=== PATIENT | female | born 1990 ===

== ENCOUNTER 2017-02-11 02:11 | Inpatient (IN) | payer MEDICAID ==
[2017-02-11] MEDS ORDERED: POLYCILLIN/NS 2 GM/100 ML 2 GM/100 ML BAG IV ONE (03:27)
[2017-02-11] MEDS ORDERED: ePHEDrine SULFATE IV PRN ×3 (03:27→08:38)
[2017-02-11] MEDS ORDERED: XYLOCAINE 2% INFILTRATI ONE ×2 (03:27→04:31)
[2017-02-11] MEDS ORDERED: BRETHINE IVP PRN ×2 (03:27→04:31)
[2017-02-11] MEDS ORDERED: BRETHINE SUB-Q PRN ×2 (03:27→04:31)
[2017-02-11] MEDS ORDERED: MINERAL OIL PO PRN ×2 (03:27→04:31)
[2017-02-11] MEDS ORDERED: PITOCin/NS 20 UNIT/1000ML DRIP 20 UNITS/1,000 ML BAG IV SCH ×2 (04:00→05:00)
[2017-02-11] MEDS ORDERED: LACTATED RINGERS 1,000 ML IV SCH (04:00)
[2017-02-11 04:16] LABS: Hematocrit 32.6 % (30.3-42.9); Hemoglobin 10.7 gm/dl (10.1-14.3); Mean Corpuscular HGB Conc 33 % (30-34); Mean Corpuscular Hemoglobin 30 pg (28-32); Mean Corpuscular Volume 91 fl (79-97); Platelet Count 336 K/mm3 (140-440); Red Cell Distribution Width 14.4 % (13.2-15.2); White Blood Count 11.2 K/mm3 (4.5-11.0)
--- NOTE | 2017-02-11 04:23 | History and Physical Report ---
History of Present Illness Date of examination: 02/11/17 Date of admission: 02/11/17 03:29 Chief complaint: Painful contractions History of present illness: 26-year-old at 39+ weeks presents with painful contractions, she is a [facility] patient. She is GBS positive, care has been unremarkable. Past History Past Medical History: no pertinent history Past Surgical History: no surgical history [employer] History: denies: chlamydia, gonorrhea, hepatitis B, hepatitis C, herpes, HIV , syphilis, trichomonas Social history: single. denies: smoking, alcohol abuse, prescription drug abuse , IV drug use, full code - Obstetrical History Expected Date of Delivery: 02/15/17 Actual Gestation: 39 Week(s) 3 Day(s) : 4 Para: 1 Number of Living Children: 1 Medications and Allergies Allergies Allergy/AdvReac Type Severity Reaction Status Date / Time No Known Allergies Allergy Unverified 12/06/15 15:26 Active Meds: Active Medications Fentanyl (Sublimaze) 100 mcg IV Q2H PRN PRN Reason: Labor Pain Ampicillin Sodium (Polycillin/Ns 2 Gm/100 Ml) 2 gm in 100 mls @ 100 mls/hr IV ONCE ONE PRN Reason: Protocol Stop: 02/11/17 04:26 Lactated Ringer's (Lactated Ringers) 1,000 mls @ 125 mls/hr IV DIRECT RISA Oxytocin/Sodium Chloride (Pitocin/Ns 20 Unit/1000ml Drip) 20 units in 1,000 mls @ 125 mls/hr IV DIRECT RISA Ampicillin Sodium (Polycillin/Ns 1 Gm/50 Ml) 1 gm in 50 mls @ 100 mls/hr IV Q4H RISA PRN Reason: Protocol Mineral Oil (Mineral Oil) 30 ml PO QHS PRN PRN Reason: Constipation Review of Systems Constitutional: no fever, no chills, no sweats, no lethargy, no chronic headaches Cardiovascular: no chest pain, no orthopnea, no palpitations, no edema, no syncope, no lightheadedness, no shortness of breath Respiratory: no cough with sputum, no shortness of breath, no dyspnea on exertion Gastrointestinal: abdominal pain (painful contractions) - Vital Signs Vital signs: Vital Signs Pulse BP 76 118/68 02/11/17 02:23 02/11/17 02:23 Temp Pulse Resp BP Pulse Ox 97.9 F 84 20 118/68 98 02/11/17 02:25 02/11/17 04:13 02/11/17 02:25 02/11/17 02:23 02/11/17 04:13 - Physical Exam Abdomen: Positive: normal appearance, soft. Negative: distention, tenderness, guarding, rigidity Genitourinary (Female): Positive: normal external genitalia Uterus: Positive: enlarged (EFW ~ 3700) Adnexa: both: normal Extremities: Positive: normal - Obstetrical FHR: category 1 Cervical Dilatation: 3 (per RN) Results Result Diagrams: 02/11/17 03:41 Abnormal lab results 02/11/17 Range/Units 03:41 WBC 11.2 H (4.5-11.0) K/mm3 RBC 3.60 L (3.65-5.03) M/mm3 All other labs normal. Assessment and Plan A: 26 y/o at 39+ wks with painful contractions -Cat 1 tracing P: -Admit -Routine labs -Epidural prn -Routine care -Anticipate - Patient Problems (1) 39 weeks gestation of Current Visit: Yes Status: Acute (2) Active labor at term Current Visit: Yes Status: Acute
[2017-02-11] MEDS: SUBLIMAZE IV PRN ×3 (04:30→20:59)
[2017-02-11] MEDS ORDERED: ZOFRAN IV PRN (04:31)
[2017-02-11] MEDS: PITOCin/NS 30 UNIT/500ML 30 UNITS/500 ML BAG IV SCH ×2 (05:10→23:03)
[2017-02-11] MEDS: LACTATED RINGERS 1,000 ML IV SCH ×3 (05:13→22:18)
[2017-02-11] MEDS ORDERED: ePHEDrine SULFATE ONE (07:53)
[2017-02-11] MEDS ORDERED: NARCAN 2 MG/2 ML IV PRN (08:38)
--- NOTE | 2017-02-11 08:38 | Anesthesia Consultation ---
Anesthesia Consult and Med Hx Date of service: 02/11/17 - Airway Anesthetic Teeth Evaluation: Good ROM Head & Neck: Adequate Mental/Hyoid Distance: Adequate Intubation Access Assessment: Probably Good - Pre-Operative Health Status ASA Pre-Surgery Classification: ASA2, Emergency Proposed Anesthetic Plan: Epidural, Spinal - Pulmonary Hx Asthma: No COPD: No Hx Pneumonia: No - Cardiovascular System Hx Hypertension: No - Central Nervous System Hx Seizures: No Hx Psychiatric Problems: No - Endocrine Hx Renal Disease: No Hx End Stage Renal Disease: No Hx Hypothyroidism: No Hx Hyperthyroidism: No - Hematic Hx Anemia: Yes Hx Sickle Cell Disease: No - Other Systems Hx Alcohol Use: No
[2017-02-11] MEDS: POLYCILLIN/NS 1 GM/50 ML 1 GM/50 ML BAG IV SCH ×2 (08:46→16:19)
[2017-02-11] MEDS: fentaNYL-BUPIV 2 MCG/ML-0.125% 200 MCG/100 ML BAG EPIDURAL SCH ×2 (08:51→16:58)
--- NOTE | 2017-02-11 13:52 | Progress Note ---
Assessment and Plan A: 26 y/o at 39+ wks in active labor -Cat 1 tracing P: -No cervical change despite Pitocin -Will reexamine cervix at 2 -Disposition after exam - Patient Problems (1) 39 weeks gestation of Current Visit: Yes Status: Acute (2) Active labor at term Current Visit: Yes Status: Acute Subjective - Subjective Date of service: 02/11/17 Interval history: 26-year-old at 39+ weeks presents in active labor, she is a [facility] patient. She is GBS positive, care has been unremarkable. Patient reports: new complaints, contractions, no loss of fluid, no vaginal bleeding Objective - Vital Signs Vital Signs: Vital Signs - 12hr 02/11/17 02/11/17 02/11/17 02:23 02:25 04:13 Temperature 97.9 F Pulse Rate 76 84 Pulse Rate [ Left From Monitor] Respiratory 20 Rate Blood Pressure 118/68 Blood Pressure [Right Arm] O2 Sat by Pulse 98 Oximetry 02/11/17 02/11/17 02/11/17 04:17 04:18 04:23 Temperature Pulse Rate 90 90 88 Pulse Rate [ Left From Monitor] Respiratory Rate Blood Pressure 119/94 Blood Pressure [Right Arm] O2 Sat by Pulse 96 97 Oximetry 02/11/17 02/11/17 02/11/17 04:28 04:30 04:33 Temperature Pulse Rate 92 H 91 H Pulse Rate [ Left From Monitor] Respiratory 19 Rate Blood Pressure Blood Pressure [Right Arm] O2 Sat by Pulse 97 98 Oximetry 02/11/17 02/11/17 02/11/17 04:38 04:43 04:48 Temperature Pulse Rate 88 89 89 Pulse Rate [ Left From Monitor] Respiratory Rate Blood Pressure Blood Pressure [Right Arm] O2 Sat by Pulse 98 97 97 Oximetry 02/11/17 02/11/17 02/11/17 04:53 04:54 04:55 Temperature 97.9 F Pulse Rate 84 86 Pulse Rate [ 85 Left From Monitor] Respiratory 18 Rate Blood Pressure 118/70 Blood Pressure 118/70 [Right Arm] O2 Sat by Pulse 97 Oximetry 02/11/17 02/11/17 02/11/17 04:58 05:00 05:03 Temperature Pulse Rate 90 90 Pulse Rate [ Left From Monitor] Respiratory 19 Rate Blood Pressure Blood Pressure [Right Arm] O2 Sat by Pulse 96 97 Oximetry 02/11/17 02/11/17 02/11/17 05:08 05:13 05:18 Temperature Pulse Rate 90 85 90 Pulse Rate [ Left From Monitor] Respiratory Rate Blood Pressure Blood Pressure [Right Arm] O2 Sat by Pulse 97 97 96 Oximetry 02/11/17 02/11/17 02/11/17 05:23 05:25 05:28 Temperature Pulse Rate 82 82 97 H Pulse Rate [ Left From Monitor] Respiratory Rate Blood Pressure 121/76 Blood Pressure [Right Arm] O2 Sat by Pulse 97 95 Oximetry 02/11/17 02/11/17 02/11/17 05:33 05:38 05:43 Temperature Pulse Rate 86 84 91 H Pulse Rate [ Left From Monitor] Respiratory Rate Blood Pressure Blood Pressure [Right Arm] O2 Sat by Pulse 97 96 96 Oximetry 02/11/17 02/11/17 02/11/17 05:46 05:48 05:53 Temperature Pulse Rate 91 H 88 91 H Pulse Rate [ Left From Monitor] Respiratory Rate Blood Pressure Blood Pressure [Right Arm] O2 Sat by Pulse 92 96 93 Oximetry 02/11/17 02/11/17 02/11/17 05:55 05:58 06:00 Temperature Pulse Rate 88 76 90 Pulse Rate [ Left From Monitor] Respiratory Rate Blood Pressure 122/64 Blood Pressure [Right Arm] O2 Sat by Pulse 96 90 Oximetry 02/11/17 02/11/17 02/11/17 06:03 06:07 06:08 Temperature Pulse Rate 88 89 95 H Pulse Rate [ Left From Monitor] Respiratory Rate Blood Pressure Blood Pressure [Right Arm] O2 Sat by Pulse 99 94 98 Oximetry 02/11/17 02/11/17 02/11/17 06:13 06:14 06:18 Temperature Pulse Rate 89 84 86 Pulse Rate [ Left From Monitor] Respiratory Rate Blood Pressure Blood Pressure [Right Arm] O2 Sat by Pulse 95 93 95 Oximetry 02/11/17 02/11/17 02/11/17 06:19 06:23 06:25 Temperature Pulse Rate 83 83 103 H Pulse Rate [ Left From Monitor] Respiratory Rate Blood Pressure 108/63 Blood Pressure [Right Arm] O2 Sat by Pulse 94 95 Oximetry 02/11/17 02/11/17 02/11/17 06:26 06:28 06:32 Temperature Pulse Rate 85 85 86 Pulse Rate [ Left From Monitor] Respiratory Rate Blood Pressure Blood Pressure [Right Arm] O2 Sat by Pulse 90 95 93 Oximetry 02/11/17 02/11/17 02/11/17 06:33 06:38 06:40 Temperature Pulse Rate 87 100 H Pulse Rate [ Left From Monitor] Respiratory 18 Rate Blood Pressure Blood Pressure [Right Arm] O2 Sat by Pulse 94 98 Oximetry 02/11/17 02/11/17 02/11/17 06:43 06:45 06:48 Temperature Pulse Rate 89 94 H 86 Pulse Rate [ Left From Monitor] Respiratory Rate Blood Pressure Blood Pressure [Right Arm] O2 Sat by Pulse 96 93 94 Oximetry 02/11/17 02/11/17 02/11/17 06:53 06:55 06:58 Temperature Pulse Rate 86 85 84 Pulse Rate [ Left From Monitor] Respiratory Rate Blood Pressure 110/56 Blood Pressure [Right Arm] O2 Sat by Pulse 94 94 Oximetry 02/11/17 02/11/17 02/11/17 07:03 07:05 07:08 Temperature Pulse Rate 103 H 90 87 Pulse Rate [ Left From Monitor] Respiratory Rate Blood Pressure Blood Pressure [Right Arm] O2 Sat by Pulse 96 94 94 Oximetry 02/11/17 02/11/17 02/11/17 07:11 07:13 07:18 Temperature Pulse Rate 89 100 H 87 Pulse Rate [ Left From Monitor] Respiratory Rate Blood Pressure Blood Pressure [Right Arm] O2 Sat by Pulse 93 96 95 Oximetry 02/11/17 02/11/17 02/11/17 07:20 07:23 07:25 Temperature Pulse Rate 88 98 H 87 Pulse Rate [ Left From Monitor] Respiratory Rate Blood Pressure 118/70 Blood Pressure [Right Arm] O2 Sat by Pulse 93 96 Oximetry 02/11/17 02/11/17 02/11/17 07:28 07:33 07:38 Temperature Pulse Rate 95 H 90 92 H Pulse Rate [ Left From Monitor] Respiratory Rate Blood Pressure Blood Pressure [Right Arm] O2 Sat by Pulse 97 95 97 Oximetry 02/11/17 02/11/17 02/11/17 07:42 07:43 07:48 Temperature Pulse Rate 94 H 90 88 Pulse Rate [ Left From Monitor] Respiratory Rate Blood Pressure Blood Pressure [Right Arm] O2 Sat by Pulse 94 95 95 Oximetry 02/11/17 02/11/17 02/11/17 07:53 07:54 07:55 Temperature Pulse Rate 91 H 91 H 93 H Pulse Rate [ Left From Monitor] Respiratory Rate Blood Pressure 117/70 Blood Pressure [Right Arm] O2 Sat by Pulse 95 94 Oximetry 02/11/17 02/11/17 02/11/17 07:58 08:06 08:11 Temperature Pulse Rate 81 91 H 93 H Pulse Rate [ Left From Monitor] Respiratory Rate Blood Pressure Blood Pressure [Right Arm] O2 Sat by Pulse 96 99 98 Oximetry 02/11/17 02/11/17 02/11/17 08:15 08:16 08:17 Temperature Pulse Rate 99 H 98 H 96 H Pulse Rate [ Left From Monitor] Respiratory Rate Blood Pressure 126/79 124/78 Blood Pressure [Right Arm] O2 Sat by Pulse 98 Oximetry 02/11/17 02/11/17 02/11/17 08:19 08:21 08:23 Temperature Pulse Rate 101 H 100 H 95 H Pulse Rate [ Left From Monitor] Respiratory Rate Blood Pressure 120/76 119/75 122/80 Blood Pressure [Right Arm] O2 Sat by Pulse 98 Oximetry 02/11/17 02/11/17 02/11/17 08:25 08:26 08:27 Temperature Pulse Rate 95 H 89 89 Pulse Rate [ Left From Monitor] Respiratory Rate Blood Pressure 114/63 111/60 Blood Pressure [Right Arm] O2 Sat by Pulse 98 Oximetry 02/11/17 02/11/17 02/11/17 08:29 08:31 08:33 Temperature Pulse Rate 92 H 90 86 Pulse Rate [ Left From Monitor] Respiratory Rate Blood Pressure 112/63 114/61 114/62 Blood Pressure [Right Arm] O2 Sat by Pulse 97 Oximetry 02/11/17 02/11/17 02/11/17 08:35 08:36 08:37 Temperature Pulse Rate 90 87 93 H Pulse Rate [ Left From Monitor] Respiratory Rate Blood Pressure 114/63 118/67 Blood Pressure [Right Arm] O2 Sat by Pulse 97 Oximetry 02/11/17 02/11/17 02/11/17 08:39 08:41 08:43 Temperature Pulse Rate 87 85 90 Pulse Rate [ Left From Monitor] Respiratory Rate Blood Pressure 113/63 114/66 105/58 Blood Pressure [Right Arm] O2 Sat by Pulse 97 Oximetry 02/11/17 02/11/17 02/11/17 08:46 08:49 08:51 Temperature Pulse Rate 90 86 92 H Pulse Rate [ Left From Monitor] Respiratory Rate Blood Pressure 114/58 Blood Pressure [Right Arm] O2 Sat by Pulse 97 95 Oximetry 02/11/17 02/11/17 02/11/17 08:55 08:56 09:01 Temperature Pulse Rate 84 89 82 Pulse Rate [ Left From Monitor] Respiratory Rate Blood Pressure 109/55 Blood Pressure [Right Arm] O2 Sat by Pulse 95 95 Oximetry 02/11/17 02/11/17 02/11/17 09:06 09:11 09:16 Temperature Pulse Rate 83 77 77 Pulse Rate [ Left From Monitor] Respiratory Rate Blood Pressure 107/57 Blood Pressure [Right Arm] O2 Sat by Pulse 100 100 99 Oximetry 02/11/17 02/11/17 02/11/17 09:21 09:26 09:31 Temperature Pulse Rate 78 77 80 Pulse Rate [ Left From Monitor] Respiratory Rate Blood Pressure 98/52 Blood Pressure [Right Arm] O2 Sat by Pulse 99 99 99 Oximetry 02/11/17 02/11/17 02/11/17 09:36 09:41 09:46 Temperature Pulse Rate 84 80 82 Pulse Rate [ Left From Monitor] Respiratory Rate Blood Pressure Blood Pressure [Right Arm] O2 Sat by Pulse 99 100 100 Oximetry 02/11/17 02/11/17 02/11/17 09:51 09:55 09:56 Temperature Pulse Rate 75 77 79 Pulse Rate [ Left From Monitor] Respiratory Rate Blood Pressure 107/59 Blood Pressure [Right Arm] O2 Sat by Pulse 100 100 Oximetry 02/11/17 02/11/17 02/11/17 10:01 10:06 10:11 Temperature Pulse Rate 85 83 79 Pulse Rate [ Left From Monitor] Respiratory Rate Blood Pressure 111/57 Blood Pressure [Right Arm] O2 Sat by Pulse 100 100 100 Oximetry 02/11/17 02/11/17 02/11/17 10:16 10:21 10:26 Temperature Pulse Rate 80 82 76 Pulse Rate [ Left From Monitor] Respiratory Rate Blood Pressure 110/58 Blood Pressure [Right Arm] O2 Sat by Pulse 99 100 100 Oximetry 02/11/17 02/11/17 02/11/17 10:31 10:36 10:41 Temperature Pulse Rate 84 77 80 Pulse Rate [ Left From Monitor] Respiratory Rate Blood Pressure 112/61 Blood Pressure [Right Arm] O2 Sat by Pulse 100 100 100 Oximetry 02/11/17 02/11/17 02/11/17 10:48 10:53 10:57 Temperature Pulse Rate 83 81 79 Pulse Rate [ Left From Monitor] Respiratory Rate Blood Pressure 116/65 Blood Pressure [Right Arm] O2 Sat by Pulse 100 99 Oximetry 02/11/17 02/11/17 02/11/17 10:58 11:03 11:08 Temperature Pulse Rate 80 82 82 Pulse Rate [ Left From Monitor] Respiratory Rate Blood Pressure Blood Pressure [Right Arm] O2 Sat by Pulse 100 100 99 Oximetry 02/11/17 02/11/17 02/11/17 11:12 11:13 11:15 Temperature 98.0 F Pulse Rate 76 81 Pulse Rate [ 81 Left From Monitor] Respiratory 16 Rate Blood Pressure 113/61 Blood Pressure 113/61 [Right Arm] O2 Sat by Pulse 99 Oximetry 02/11/17 02/11/17 02/11/17 11:18 11:23 11:25 Temperature Pulse Rate 78 81 83 Pulse Rate [ Left From Monitor] Respiratory Rate Blood Pressure 115/61 Blood Pressure [Right Arm] O2 Sat by Pulse 100 99 Oximetry 02/11/17 02/11/17 02/11/17 11:28 11:33 11:38 Temperature Pulse Rate 91 H 87 77 Pulse Rate [ Left From Monitor] Respiratory Rate Blood Pressure Blood Pressure [Right Arm] O2 Sat by Pulse 100 98 100 Oximetry 02/11/17 02/11/17 02/11/17 11:40 11:43 11:48 Temperature Pulse Rate 88 82 79 Pulse Rate [ Left From Monitor] Respiratory Rate Blood Pressure 115/62 Blood Pressure [Right Arm] O2 Sat by Pulse 100 100 Oximetry 02/11/17 02/11/17 02/11/17 11:53 11:56 11:58 Temperature Pulse Rate 80 77 79 Pulse Rate [ Left From Monitor] Respiratory Rate Blood Pressure 111/63 Blood Pressure [Right Arm] O2 Sat by Pulse 99 100 Oximetry 02/11/17 02/11/17 02/11/17 12:03 12:08 12:11 Temperature Pulse Rate 77 80 75 Pulse Rate [ Left From Monitor] Respiratory Rate Blood Pressure 111/66 Blood Pressure [Right Arm] O2 Sat by Pulse 100 100 Oximetry 02/11/17 02/11/17 02/11/17 12:13 12:18 12:23 Temperature Pulse Rate 87 82 83 Pulse Rate [ Left From Monitor] Respiratory Rate Blood Pressure Blood Pressure [Right Arm] O2 Sat by Pulse 100 100 100 Oximetry 02/11/17 02/11/17 02/11/17 12:26 12:28 12:33 Temperature Pulse Rate 79 82 83 Pulse Rate [ Left From Monitor] Respiratory Rate Blood Pressure 114/60 Blood Pressure [Right Arm] O2 Sat by Pulse 99 99 Oximetry 02/11/17 02/11/17 02/11/17 12:38 12:41 12:43 Temperature Pulse Rate 83 80 82 Pulse Rate [ Left From Monitor] Respiratory Rate Blood Pressure 114/58 Blood Pressure [Right Arm] O2 Sat by Pulse 99 99 Oximetry 02/11/17 02/11/17 02/11/17 12:48 12:53 12:57 Temperature Pulse Rate 81 85 86 Pulse Rate [ Left From Monitor] Respiratory Rate Blood Pressure 115/60 Blood Pressure [Right Arm] O2 Sat by Pulse 100 99 Oximetry 02/11/17 02/11/17 02/11/17 12:58 13:03 13:08 Temperature Pulse Rate 89 87 82 Pulse Rate [ Left From Monitor] Respiratory Rate Blood Pressure Blood Pressure [Right Arm] O2 Sat by Pulse 99 99 100 Oximetry 02/11/17 02/11/17 02/11/17 13:10 13:13 13:18 Temperature Pulse Rate 80 83 83 Pulse Rate [ Left From Monitor] Respiratory Rate Blood Pressure 114/61 Blood Pressure [Right Arm] O2 Sat by Pulse 99 100 Oximetry 02/11/17 02/11/17 02/11/17 13:23 13:26 13:28 Temperature Pulse Rate 87 101 H 89 Pulse Rate [ Left From Monitor] Respiratory Rate Blood Pressure 108/67 Blood Pressure [Right Arm] O2 Sat by Pulse 100 100 Oximetry 02/11/17 02/11/17 02/11/17 13:33 13:38 13:41 Temperature Pulse Rate 84 79 81 Pulse Rate [ Left From Monitor] Respiratory Rate Blood Pressure 117/61 Blood Pressure [Right Arm] O2 Sat by Pulse 99 99 Oximetry 02/11/17 02/11/17 13:43 13:48 Temperature Pulse Rate 91 H 86 Pulse Rate [ Left From Monitor] Respiratory Rate Blood Pressure Blood Pressure [Right Arm] O2 Sat by Pulse 100 99 Oximetry - Exam FHR: category 1 Cervical Dilatation: 3.5 - Labs Labs: Abnormal Labs 02/11/17 03:41 WBC 11.2 H RBC 3.60 L Laboratory Results - last 24 hr 02/11/17 02/11/17 03:16 03:41 WBC 11.2 H RBC 3.60 L Hgb 10.7 Hct 32.6 MCV 91 MCH 30 MCHC 33 RDW 14.4 Plt Count 336 Blood Type A POSITIVE Antibody Screen TNR AVINAHS Antibody Screen Negative
--- NOTE | 2017-02-11 14:18 | Event Note ---
Date: 02/11/17 No cervical change. Bedside sono confirmed cephalic presentation. Plan at this point is to continue present care, will recheck the cervix at 5. If no cervical change, will discontinue Pitocin allow patient to eat and ambulate and consider low-dose with restart of pitocin protocol in the a.m.
--- NOTE | 2017-02-11 18:07 | Progress Note ---
Assessment and Plan A: 26 y/o at 39+ wks with painful contractions -Cat 1 tracing -Patient not in labor P: -Have discontinued Pitocin and epidural at this time -Will allow patient to eat at this time -Reviewed options with patient including discharge home after BPP or low-dose Pitocin overnight with retry of Pitocin -Disposition after her decision - Patient Problems (1) 39 weeks gestation of Current Visit: Yes Status: Acute (2) Active labor at term Current Visit: Yes Status: Acute Subjective - Subjective Date of service: 02/11/17 Interval history: Patient with no cervical change despite Pitocin augmentation. Infant category 1. Patient reports: new complaints, movement normal, contractions, no loss of fluid, no vaginal bleeding Objective - Vital Signs Vital Signs: Vital Signs - 12hr 02/11/17 02/11/17 02/11/17 06:07 06:08 06:13 Temperature Pulse Rate 89 95 H 89 Pulse Rate [ Left From Monitor] Respiratory Rate Blood Pressure Blood Pressure [Right Arm] O2 Sat by Pulse 94 98 95 Oximetry 02/11/17 02/11/17 02/11/17 06:14 06:18 06:19 Temperature Pulse Rate 84 86 83 Pulse Rate [ Left From Monitor] Respiratory Rate Blood Pressure Blood Pressure [Right Arm] O2 Sat by Pulse 93 95 94 Oximetry 02/11/17 02/11/17 02/11/17 06:23 06:25 06:26 Temperature Pulse Rate 83 103 H 85 Pulse Rate [ Left From Monitor] Respiratory Rate Blood Pressure 108/63 Blood Pressure [Right Arm] O2 Sat by Pulse 95 90 Oximetry 02/11/17 02/11/17 02/11/17 06:28 06:32 06:33 Temperature Pulse Rate 85 86 87 Pulse Rate [ Left From Monitor] Respiratory Rate Blood Pressure Blood Pressure [Right Arm] O2 Sat by Pulse 95 93 94 Oximetry 02/11/17 02/11/17 02/11/17 06:38 06:40 06:43 Temperature Pulse Rate 100 H 89 Pulse Rate [ Left From Monitor] Respiratory 18 Rate Blood Pressure Blood Pressure [Right Arm] O2 Sat by Pulse 98 96 Oximetry 02/11/17 02/11/17 02/11/17 06:45 06:48 06:53 Temperature Pulse Rate 94 H 86 86 Pulse Rate [ Left From Monitor] Respiratory Rate Blood Pressure Blood Pressure [Right Arm] O2 Sat by Pulse 93 94 94 Oximetry 02/11/17 02/11/17 02/11/17 06:55 06:58 07:03 Temperature Pulse Rate 85 84 103 H Pulse Rate [ Left From Monitor] Respiratory Rate Blood Pressure 110/56 Blood Pressure [Right Arm] O2 Sat by Pulse 94 96 Oximetry 02/11/17 02/11/17 02/11/17 07:05 07:08 07:11 Temperature Pulse Rate 90 87 89 Pulse Rate [ Left From Monitor] Respiratory Rate Blood Pressure Blood Pressure [Right Arm] O2 Sat by Pulse 94 94 93 Oximetry 02/11/17 02/11/17 02/11/17 07:13 07:18 07:20 Temperature Pulse Rate 100 H 87 88 Pulse Rate [ Left From Monitor] Respiratory Rate Blood Pressure Blood Pressure [Right Arm] O2 Sat by Pulse 96 95 93 Oximetry 02/11/17 02/11/17 02/11/17 07:23 07:25 07:28 Temperature Pulse Rate 98 H 87 95 H Pulse Rate [ Left From Monitor] Respiratory Rate Blood Pressure 118/70 Blood Pressure [Right Arm] O2 Sat by Pulse 96 97 Oximetry 02/11/17 02/11/17 02/11/17 07:33 07:38 07:42 Temperature Pulse Rate 90 92 H 94 H Pulse Rate [ Left From Monitor] Respiratory Rate Blood Pressure Blood Pressure [Right Arm] O2 Sat by Pulse 95 97 94 Oximetry 02/11/17 02/11/17 02/11/17 07:43 07:48 07:53 Temperature Pulse Rate 90 88 91 H Pulse Rate [ Left From Monitor] Respiratory Rate Blood Pressure Blood Pressure [Right Arm] O2 Sat by Pulse 95 95 95 Oximetry 02/11/17 02/11/17 02/11/17 07:54 07:55 07:58 Temperature Pulse Rate 91 H 93 H 81 Pulse Rate [ Left From Monitor] Respiratory Rate Blood Pressure 117/70 Blood Pressure [Right Arm] O2 Sat by Pulse 94 96 Oximetry 02/11/17 02/11/17 02/11/17 08:06 08:11 08:15 Temperature Pulse Rate 91 H 93 H 99 H Pulse Rate [ Left From Monitor] Respiratory Rate Blood Pressure 126/79 Blood Pressure [Right Arm] O2 Sat by Pulse 99 98 Oximetry 02/11/17 02/11/17 02/11/17 08:16 08:17 08:19 Temperature Pulse Rate 98 H 96 H 101 H Pulse Rate [ Left From Monitor] Respiratory Rate Blood Pressure 124/78 120/76 Blood Pressure [Right Arm] O2 Sat by Pulse 98 Oximetry 02/11/17 02/11/17 02/11/17 08:21 08:23 08:25 Temperature Pulse Rate 100 H 95 H 95 H Pulse Rate [ Left From Monitor] Respiratory Rate Blood Pressure 119/75 122/80 114/63 Blood Pressure [Right Arm] O2 Sat by Pulse 98 Oximetry 02/11/17 02/11/17 02/11/17 08:26 08:27 08:29 Temperature Pulse Rate 89 89 92 H Pulse Rate [ Left From Monitor] Respiratory Rate Blood Pressure 111/60 112/63 Blood Pressure [Right Arm] O2 Sat by Pulse 98 Oximetry 02/11/17 02/11/17 02/11/17 08:31 08:33 08:35 Temperature Pulse Rate 90 86 90 Pulse Rate [ Left From Monitor] Respiratory Rate Blood Pressure 114/61 114/62 114/63 Blood Pressure [Right Arm] O2 Sat by Pulse 97 Oximetry 02/11/17 02/11/17 02/11/17 08:36 08:37 08:39 Temperature Pulse Rate 87 93 H 87 Pulse Rate [ Left From Monitor] Respiratory Rate Blood Pressure 118/67 113/63 Blood Pressure [Right Arm] O2 Sat by Pulse 97 Oximetry 02/11/17 02/11/17 02/11/17 08:41 08:43 08:46 Temperature Pulse Rate 85 90 90 Pulse Rate [ Left From Monitor] Respiratory Rate Blood Pressure 114/66 105/58 Blood Pressure [Right Arm] O2 Sat by Pulse 97 97 Oximetry 02/11/17 02/11/17 02/11/17 08:49 08:51 08:55 Temperature Pulse Rate 86 92 H 84 Pulse Rate [ Left From Monitor] Respiratory Rate Blood Pressure 114/58 109/55 Blood Pressure [Right Arm] O2 Sat by Pulse 95 Oximetry 02/11/17 02/11/17 02/11/17 08:56 09:01 09:06 Temperature Pulse Rate 89 82 83 Pulse Rate [ Left From Monitor] Respiratory Rate Blood Pressure Blood Pressure [Right Arm] O2 Sat by Pulse 95 95 100 Oximetry 02/11/17 02/11/17 02/11/17 09:11 09:16 09:21 Temperature Pulse Rate 77 77 78 Pulse Rate [ Left From Monitor] Respiratory Rate Blood Pressure 107/57 Blood Pressure [Right Arm] O2 Sat by Pulse 100 99 99 Oximetry 02/11/17 02/11/17 02/11/17 09:26 09:31 09:36 Temperature Pulse Rate 77 80 84 Pulse Rate [ Left From Monitor] Respiratory Rate Blood Pressure 98/52 Blood Pressure [Right Arm] O2 Sat by Pulse 99 99 99 Oximetry 02/11/17 02/11/17 02/11/17 09:41 09:46 09:51 Temperature Pulse Rate 80 82 75 Pulse Rate [ Left From Monitor] Respiratory Rate Blood Pressure Blood Pressure [Right Arm] O2 Sat by Pulse 100 100 100 Oximetry 02/11/17 02/11/17 02/11/17 09:55 09:56 10:01 Temperature Pulse Rate 77 79 85 Pulse Rate [ Left From Monitor] Respiratory Rate Blood Pressure 107/59 Blood Pressure [Right Arm] O2 Sat by Pulse 100 100 Oximetry 02/11/17 02/11/17 02/11/17 10:06 10:11 10:16 Temperature Pulse Rate 83 79 80 Pulse Rate [ Left From Monitor] Respiratory Rate Blood Pressure 111/57 Blood Pressure [Right Arm] O2 Sat by Pulse 100 100 99 Oximetry 02/11/17 02/11/17 02/11/17 10:21 10:26 10:31 Temperature Pulse Rate 82 76 84 Pulse Rate [ Left From Monitor] Respiratory Rate Blood Pressure 110/58 Blood Pressure [Right Arm] O2 Sat by Pulse 100 100 100 Oximetry 02/11/17 02/11/17 02/11/17 10:36 10:41 10:48 Temperature Pulse Rate 77 80 83 Pulse Rate [ Left From Monitor] Respiratory Rate Blood Pressure 112/61 Blood Pressure [Right Arm] O2 Sat by Pulse 100 100 100 Oximetry 02/11/17 02/11/17 02/11/17 10:53 10:57 10:58 Temperature Pulse Rate 81 79 80 Pulse Rate [ Left From Monitor] Respiratory Rate Blood Pressure 116/65 Blood Pressure [Right Arm] O2 Sat by Pulse 99 100 Oximetry 02/11/17 02/11/17 02/11/17 11:03 11:08 11:12 Temperature Pulse Rate 82 82 76 Pulse Rate [ Left From Monitor] Respiratory Rate Blood Pressure 113/61 Blood Pressure [Right Arm] O2 Sat by Pulse 100 99 Oximetry 02/11/17 02/11/1702/11/17 11:13 11:15 11:18 Temperature 98.0 F Pulse Rate 81 78 Pulse Rate [ 81 Left From Monitor] Respiratory 16 Rate Blood Pressure Blood Pressure 113/61 [Right Arm] O2 Sat by Pulse 99 100 Oximetry 02/11/17 02/11/17 02/11/17 11:23 11:25 11:28 Temperature Pulse Rate 81 83 91 H Pulse Rate [ Left From Monitor] Respiratory Rate Blood Pressure 115/61 Blood Pressure [Right Arm] O2 Sat by Pulse 99 100 Oximetry 02/11/17 02/11/17 02/11/17 11:33 11:38 11:40 Temperature Pulse Rate 87 77 88 Pulse Rate [ Left From Monitor] Respiratory Rate Blood Pressure 115/62 Blood Pressure [Right Arm] O2 Sat by Pulse 98 100 Oximetry 02/11/17 02/11/17 02/11/17 11:43 11:48 11:53 Temperature Pulse Rate 82 79 80 Pulse Rate [ Left From Monitor] Respiratory Rate Blood Pressure Blood Pressure [Right Arm] O2 Sat by Pulse 100 100 99 Oximetry 02/11/17 02/11/17 02/11/17 11:56 11:58 12:03 Temperature Pulse Rate 77 79 77 Pulse Rate [ Left From Monitor] Respiratory Rate Blood Pressure 111/63 Blood Pressure [Right Arm] O2 Sat by Pulse 100 100 Oximetry 02/11/17 02/11/17 02/11/17 12:08 12:11 12:13 Temperature Pulse Rate 80 75 87 Pulse Rate [ Left From Monitor] Respiratory Rate Blood Pressure 111/66 Blood Pressure [Right Arm] O2 Sat by Pulse 100 100 Oximetry 02/11/17 02/11/17 02/11/17 12:18 12:23 12:26 Temperature Pulse Rate 82 83 79 Pulse Rate [ Left From Monitor] Respiratory Rate Blood Pressure 114/60 Blood Pressure [Right Arm] O2 Sat by Pulse 100 100 Oximetry 02/11/17 02/11/17 02/11/17 12:28 12:33 12:38 Temperature Pulse Rate 82 83 83 Pulse Rate [ Left From Monitor] Respiratory Rate Blood Pressure Blood Pressure [Right Arm] O2 Sat by Pulse 99 99 99 Oximetry 02/11/17 02/11/17 02/11/17 12:41 12:43 12:48 Temperature Pulse Rate 80 82 81 Pulse Rate [ Left From Monitor] Respiratory Rate Blood Pressure 114/58 Blood Pressure [Right Arm] O2 Sat by Pulse 99 100 Oximetry 02/11/17 02/11/17 02/11/17 12:53 12:57 12:58 Temperature Pulse Rate 85 86 89 Pulse Rate [ Left From Monitor] Respiratory Rate Blood Pressure 115/60 Blood Pressure [Right Arm] O2 Sat by Pulse 99 99 Oximetry 02/11/17 02/11/17 02/11/17 13:03 13:08 13:10 Temperature Pulse Rate 87 82 80 Pulse Rate [ Left From Monitor] Respiratory Rate Blood Pressure 114/61 Blood Pressure [Right Arm] O2 Sat by Pulse 99 100 Oximetry 02/11/17 02/11/17 02/11/17 13:13 13:18 13:23 Temperature Pulse Rate 83 83 87 Pulse Rate [ Left From Monitor] Respiratory Rate Blood Pressure Blood Pressure [Right Arm] O2 Sat by Pulse 99 100 100 Oximetry 02/11/17 02/11/17 02/11/17 13:26 13:28 13:33 Temperature Pulse Rate 101 H 89 84 Pulse Rate [ Left From Monitor] Respiratory Rate Blood Pressure 108/67 Blood Pressure [Right Arm] O2 Sat by Pulse 100 99 Oximetry 02/11/17 02/11/17 02/11/17 13:38 13:41 13:43 Temperature Pulse Rate 79 81 91 H Pulse Rate [ Left From Monitor] Respiratory Rate Blood Pressure 117/61 Blood Pressure [Right Arm] O2 Sat by Pulse 99 100 Oximetry 02/11/17 02/11/17 02/11/17 13:48 13:53 13:56 Temperature 98.6 F Pulse Rate 86 82 85 Pulse Rate [ 85 Left From Monitor] Respiratory 16 Rate Blood Pressure 111/67 Blood Pressure 111/67 [Right Arm] O2 Sat by Pulse 99 99 100 Oximetry 02/11/17 02/11/17 02/11/17 13:58 14:03 14:08 Temperature Pulse Rate 85 79 80 Pulse Rate [ Left From Monitor] Respiratory Rate Blood Pressure Blood Pressure [Right Arm] O2 Sat by Pulse 100 99 100 Oximetry 02/11/17 02/11/17 02/11/17 14:10 14:13 14:18 Temperature Pulse Rate 81 88 90 Pulse Rate [ Left From Monitor] Respiratory Rate Blood Pressure 101/54 Blood Pressure [Right Arm] O2 Sat by Pulse 100 96 Oximetry 02/11/17 02/11/17 02/11/17 14:23 14:27 14:28 Temperature Pulse Rate 84 81 87 Pulse Rate [ Left From Monitor] Respiratory Rate Blood Pressure 95/50 Blood Pressure [Right Arm] O2 Sat by Pulse 100 99 Oximetry 02/11/17 02/11/17 02/11/17 14:33 14:38 14:41 Temperature Pulse Rate 82 86 78 Pulse Rate [ Left From Monitor] Respiratory Rate Blood Pressure 96/55 Blood Pressure [Right Arm] O2 Sat by Pulse 99 98 Oximetry 02/11/17 02/11/17 02/11/17 14:43 14:48 14:53 Temperature Pulse Rate 78 76 82 Pulse Rate [ Left From Monitor] Respiratory Rate Blood Pressure Blood Pressure [Right Arm] O2 Sat by Pulse 99 99 99 Oximetry 02/11/17 02/11/17 02/11/17 14:56 14:58 15:03 Temperature Pulse Rate 71 79 84 Pulse Rate [ Left From Monitor] Respiratory Rate Blood Pressure 92/54 Blood Pressure [Right Arm] O2 Sat by Pulse 98 99 Oximetry 02/11/17 02/11/17 02/11/17 15:08 15:12 15:13 Temperature Pulse Rate 74 73 81 Pulse Rate [ Left From Monitor] Respiratory Rate Blood Pressure 92/55 Blood Pressure [Right Arm] O2 Sat by Pulse 100 99 Oximetry 02/11/17 02/11/17 02/11/17 15:18 15:23 15:26 Temperature Pulse Rate 81 96 H 78 Pulse Rate [ Left From Monitor] Respiratory Rate Blood Pressure 97/52 Blood Pressure [Right Arm] O2 Sat by Pulse 99 98 Oximetry 02/11/17 02/11/17 02/11/17 15:28 15:33 15:38 Temperature Pulse Rate 78 80 77 Pulse Rate [ Left From Monitor] Respiratory Rate Blood Pressure Blood Pressure [Right Arm] O2 Sat by Pulse 99 99 99 Oximetry 02/11/17 02/11/17 02/11/17 15:41 15:43 15:48 Temperature Pulse Rate 75 78 77 Pulse Rate [ Left From Monitor] Respiratory Rate Blood Pressure 102/58 Blood Pressure [Right Arm] O2 Sat by Pulse 100 99 Oximetry 02/11/17 02/11/17 02/11/17 15:53 15:56 15:58 Temperature Pulse Rate 80 82 82 Pulse Rate [ Left From Monitor] Respiratory Rate Blood Pressure 101/59 Blood Pressure [Right Arm] O2 Sat by Pulse 99 99 Oximetry 02/11/17 02/11/17 02/11/17 16:03 16:08 16:10 Temperature Pulse Rate 85 93 H 85 Pulse Rate [ Left From Monitor] Respiratory Rate Blood Pressure 119/83 Blood Pressure [Right Arm] O2 Sat by Pulse 99 98 Oximetry 02/11/17 02/11/17 02/11/17 16:13 16:18 16:23 Temperature Pulse Rate 91 H 85 85 Pulse Rate [ Left From Monitor] Respiratory Rate Blood Pressure Blood Pressure [Right Arm] O2 Sat by Pulse 98 98 96 Oximetry 02/11/17 02/11/17 02/11/17 16:28 16:33 16:38 Temperature Pulse Rate 83 91 H 88 Pulse Rate [ Left From Monitor] Respiratory Rate Blood Pressure Blood Pressure [Right Arm] O2 Sat by Pulse 95 95 96 Oximetry 02/11/17 02/11/17 02/11/17 16:43 16:46 16:48 Temperature Pulse Rate 84 82 81 Pulse Rate [ Left From Monitor] Respiratory Rate Blood Pressure 117/56 Blood Pressure [Right Arm] O2 Sat by Pulse 95 98 Oximetry 02/11/17 02/11/17 02/11/17 16:53 16:58 17:03 Temperature Pulse Rate 89 87 87 Pulse Rate [ Left From Monitor] Respiratory Rate Blood Pressure Blood Pressure [Right Arm] O2 Sat by Pulse 97 98 98 Oximetry 02/11/17 02/11/17 02/11/17 17:08 17:13 17:16 Temperature Pulse Rate 89 92 H 87 Pulse Rate [ Left From Monitor] Respiratory Rate Blood Pressure 119/73 Blood Pressure [Right Arm] O2 Sat by Pulse 97 95 Oximetry 02/11/17 02/11/17 02/11/17 17:18 17:23 17:28 Temperature Pulse Rate 78 86 95 H Pulse Rate [ Left From Monitor] Respiratory Rate Blood Pressure Blood Pressure [Right Arm] O2 Sat by Pulse 96 96 98 Oximetry 02/11/17 02/11/17 02/11/17 17:33 17:38 17:43 Temperature Pulse Rate 99 H 93 H 98 H Pulse Rate [ Left From Monitor] Respiratory Rate Blood Pressure Blood Pressure [Right Arm] O2 Sat by Pulse 97 97 98 Oximetry 02/11/17 02/11/17 02/11/17 17:47 17:48 17:53 Temperature Pulse Rate 96 H 99 H 92 H Pulse Rate [ Left From Monitor] Respiratory Rate Blood Pressure 109/60 Blood Pressure [Right Arm] O2 Sat by Pulse 99 98 Oximetry 02/11/17 17:58 Temperature Pulse Rate 86 Pulse Rate [ Left From Monitor] Respiratory Rate Blood Pressure Blood Pressure [Right Arm] O2 Sat by Pulse 99 Oximetry - Exam FHR: category 1 Cervical Dilatation: 3.5 (Per RN) - Labs Labs: Abnormal Labs 02/11/17 03:41 WBC 11.2 H RBC 3.60 L Laboratory Results - last 24 hr 02/11/17 02/11/17 03:16 03:41 WBC 11.2 H RBC 3.60 L Hgb 10.7 Hct 32.6 MCV 91 MCH 30 MCHC 33 RDW 14.4 Plt Count 336 Blood Type A POSITIVE Antibody Screen TNR AVINASH Antibody Screen Negative
[2017-02-11] MEDS: STADOL IV PRN (23:02)
[2017-02-12] MEDS: STADOL IV PRN (02:21)
[2017-02-12] MEDS ORDERED: XYLOCAINE MPF 2% ONE (04:32)
[2017-02-12] MEDS: LACTATED RINGERS 1,000 ML IV SCH ×2 (05:45→14:38)
--- NOTE | 2017-02-12 07:20 | Progress Note ---
Assessment and Plan - Patient Problems (1) 39 weeks gestation of Onset Date: 02/12/17 Current Visit: Yes Status: Acute Plan to address problem: A: IUP @ 39 4/7 weeks P: Continue with pitocin augmentation of labor Will attempt AROM when able Subjective - Subjective Date of service: 02/12/17 Principal diagnosis: IUP @ 39 4/7 weeks Interval history: Pt currently on pitocin 8mu/min and adrian q 2-4 mins with epidural in place. Patient reports: movement normal, contractions, no new complaints, no loss of fluid, no vaginal bleeding Objective - Vital Signs Vital Signs: Vital Signs - 12hr 02/11/17 02/11/17 02/11/17 19:18 19:23 19:28 Temperature 97.9 F Pulse Rate 87 89 90 Pulse Rate [ 90 Left From Monitor] Respiratory 20 Rate Blood Pressure Blood Pressure 105/62 [Right Arm] O2 Sat by Pulse 98 98 97 Oximetry 02/11/17 02/11/17 02/11/17 19:33 19:38 19:43 Temperature Pulse Rate 103 H 91 H 91 H Pulse Rate [ Left From Monitor] Respiratory Rate Blood Pressure Blood Pressure [Right Arm] O2 Sat by Pulse 97 98 97 Oximetry 02/11/17 02/11/17 02/11/17 19:46 19:48 19:53 Temperature Pulse Rate 88 92 H 85 Pulse Rate [ Left From Monitor] Respiratory Rate Blood Pressure 127/75 Blood Pressure [Right Arm] O2 Sat by Pulse 98 97 Oximetry 02/11/17 02/11/17 02/11/17 19:58 20:03 20:08 Temperature Pulse Rate 95 H 93 H 93 H Pulse Rate [ Left From Monitor] Respiratory Rate Blood Pressure Blood Pressure [Right Arm] O2 Sat by Pulse 97 96 96 Oximetry 02/11/17 02/11/17 02/11/17 20:13 20:16 20:18 Temperature Pulse Rate 94 H 91 H 98 H Pulse Rate [ Left From Monitor] Respiratory Rate Blood Pressure 120/73 Blood Pressure [Right Arm] O2 Sat by Pulse 96 98 Oximetry 02/11/17 02/11/17 02/11/17 20:23 20:28 20:33 Temperature Pulse Rate 107 H 93 H 97 H Pulse Rate [ Left From Monitor] Respiratory Rate Blood Pressure Blood Pressure [Right Arm] O2 Sat by Pulse 97 97 96 Oximetry 02/11/17 02/11/17 02/11/17 20:34 20:38 20:46 Temperature Pulse Rate 98 H 87 83 Pulse Rate [ Left From Monitor] Respiratory Rate Blood Pressure 117/60 Blood Pressure [Right Arm] O2 Sat by Pulse 94 97 Oximetry 02/11/17 02/11/17 02/11/17 20:59 21:15 21:45 Temperature Pulse Rate 86 80 Pulse Rate [ Left From Monitor] Respiratory 20 Rate Blood Pressure 117/63 115/63 Blood Pressure [Right Arm] O2 Sat by Pulse Oximetry 02/11/17 02/11/17 02/11/17 23:02 23:04 23:16 Temperature 98.1 F Pulse Rate 83 Pulse Rate [ Left From Monitor] Respiratory 20 20 Rate Blood Pressure 113/59 Blood Pressure [Right Arm] O2 Sat by Pulse Oximetry 02/12/17 07:10 Temperature Pulse Rate 84 Pulse Rate [ Left From Monitor] Respiratory Rate Blood Pressure Blood Pressure [Right Arm] O2 Sat by Pulse 97 Oximetry - Exam Cardiovascular: Regular rate Abdomen: Present: normal appearance, soft Uterus: Present: normal FHR: category 1 Uterine Contraction Monitor Mode: External Uterine Contraction Pattern: Regular Uterine Tone Measurement Phase: Contraction Uterine Contraction Intensity: Moderate - Labs Labs: Abnormal Labs 02/11/17 03:41 WBC 11.2 H RBC 3.60 L Laboratory Results - last 24 hr 02/11/17 03:16 Blood Type A POSITIVE Antibody Screen TNR AVINASH Antibody Screen Negative
[2017-02-12] MEDS: PITOCin/NS 30 UNIT/500ML 30 UNITS/500 ML BAG IV SCH ×2 (11:29→12:35)
[2017-02-12] MEDS: fentaNYL-BUPIV 2 MCG/ML-0.125% 200 MCG/100 ML BAG EPIDURAL SCH (11:47)
[2017-02-12] MEDS ORDERED: METHERGINE IM ONE (16:07)
--- NOTE | 2017-02-12 16:25 | Procedure Note ---
OB Delivery Note - Delivery Date of Delivery: 02/12/17 Surgeon: ANASTASIA VILLAR Estimated blood loss: 500cc - Vaginal Delivery presentation: vertex Delivery position: OA Intrapartum events: prolonged labor- > = 20hr, mult.variable deceleratio Delivery induction: oxytocin Delivery augmentation: rupture of membranes Delivery monitor: external FHT, external uterine Route of delivery: vacuum extraction (4 pulls, no pop-offs) Indicators for instrumentation: nonreassuring FHR tracing Delivery placenta: spontaneous Delivery cord: 3 umbilical vessels Episiotomy: none Delivery laceration: 2nd degree (perineal) Delivery repair: vicryl Anesthesia: epidural Delivery comments: delivered STUART with vacuum extraction, and handed to awaiting Peds/RT - Infant A at 1 minute: 7 at 5 minutes: 9 Infant Gender: Female
[2017-02-12] MEDS ORDERED: MILK OF MAGNESIA PO PRN (16:27)
[2017-02-12] MEDS ORDERED: BENADRYL PO PRN (16:27)
[2017-02-12] MEDS ORDERED: PHENERGAN PR PRN (16:27)
[2017-02-12] MEDS ORDERED: PHENERGAN PO PRN (16:27)
[2017-02-12] MEDS ORDERED: LANSINOH TP PRN (16:27)
[2017-02-12] MEDS ORDERED: DULCOLAX PR PRN (16:27)
[2017-02-12] MEDS ORDERED: TYLENOL PO PRN (16:27)
[2017-02-12] MEDS ORDERED: ZOFRAN IV PRN (16:27)
[2017-02-12] MEDS ORDERED: SODIUM CHLORIDE FLUSH SYRINGE 10 ML IV SCH (17:00)
[2017-02-12] MEDS ORDERED: PITOCin/NS 20 UNIT/1000ML DRIP 20 UNITS/1,000 ML BAG IV SCH (17:00)
[2017-02-12] MEDS: MOTRIN PO SCH (17:56)
[2017-02-12] MEDS: TUCKS PAD TP PRN (17:57)
[2017-02-12] MEDS: NORCO 5/325 PO PRN ×2 (18:03→23:29)
[2017-02-12] MEDS ORDERED: STADOL IV ONE (21:00)
[2017-02-12] MEDS: COLACE PO SCH (23:29)
[2017-02-12] MEDS: FEOSOL PO SCH (23:31)
[2017-02-13] MEDS: MOTRIN PO SCH ×4 (00:22→20:32)
[2017-02-13] MEDS: NORCO 5/325 PO PRN ×6 (03:49→21:31)
[2017-02-13] MEDS ORDERED: BOOSTRIX IM ONE (06:00)
[2017-02-13 06:38] LABS: Hematocrit 29.8 % (30.3-42.9); Hemoglobin 9.6 gm/dl (10.1-14.3)
[2017-02-13] MEDS: COLACE PO SCH ×2 (09:07→21:31)
[2017-02-13] MEDS: PRENATAL VITAMIN PO SCH (09:07)
[2017-02-13] MEDS: FEOSOL PO SCH ×2 (09:07→21:31)
--- NOTE | 2017-02-13 11:46 | Progress Note ---
Assessment and Plan - Patient Problems (1) 39 weeks gestation of Onset Date: 02/12/17 Current Visit: Yes Status: Resolved (2) (normal spontaneous vaginal delivery) Onset Date: 02/13/17 Current Visit: Yes Status: Resolved Plan to address problem: A: S/P - PPD #1 Doing well P: May go home tomorrow Subjective - Subjective Date of service: 02/13/17 Principal diagnosis: s/p - PPD #1 Interval history: Pt is feeling well except for abdominal pains. Bleeding improved. Patient reports: appetite normal, voiding normally, pain well controlled, flatus , ambulating normally [place]: doing well Objective - Vital Signs Latest vital signs: Vital Signs Temp Pulse Pulse Resp BP BP BP 02/13/17 11:38 98.4 F 62 18 120/55 02/13/17 08:20 97.9 F 50 L 18 131/63 02/13/17 04:00 98.6 F 71 16 121/81 02/13/17 00:00 98.6 F 82 16 127/69 02/12/17 17:38 98.4 F 80 20 120/84 02/12/17 17:11 81 127/73 02/12/17 17:09 96 H 130/76 02/12/17 17:07 79 138/76 02/12/17 17:05 84 139/78 02/12/17 17:03 82 126/73 02/12/17 17:01 84 137/73 02/12/17 16:59 85 131/72 02/12/17 16:57 81 126/69 02/12/17 16:55 89 128/66 02/12/17 16:53 87 128/74 02/12/17 16:52 84 02/12/17 16:51 88 126/70 02/12/17 16:49 86 127/69 02/12/17 16:47 86 125/65 02/12/17 16:45 82 128/65 02/12/17 16:43 85 137/70 02/12/17 16:42 86 02/12/17 16:41 85 121/58 02/12/17 16:39 91 H 127/77 02/12/17 16:37 89 121/73 02/12/17 16:35 93 H 118/63 02/12/17 16:33 88 122/66 07/24/17 16:32 92 H 02/12/17 16:31 91 H 127/71 02/12/17 16:29 94 H 119/71 02/12/17 16:27 93 H 109/71 02/12/17 16:25 100.0 F H 162 H 18 110/57 118/61 02/12/17 16:23 88 118/61 02/12/17 16:22 94 H 02/12/17 16:21 95 H 119/57 02/12/17 16:19 99 H 121/58 02/12/17 16:17 98 H 125/70 02/12/17 16:15 100 H 112/64 02/12/17 16:13 103 H 114/59 02/12/17 16:12 97 H 111/55 02/12/17 16:07 94 H 115/55 02/12/17 16:06 91 H 113/53 02/12/17 16:05 92 H 125/57 02/12/17 16:03 91 H 112/55 02/12/17 16:01 88 127/59 02/12/17 15:59 130 H 145/76 02/12/17 15:57 75 132/59 02/12/17 15:53 120 H 139/88 02/12/17 15:51 106 H 135/63 02/12/17 15:50 85 02/12/17 15:49 89 122/58 02/12/17 15:48 117 H 02/12/17 15:47 98 H 127/58 02/12/17 15:45 94 H 125/56 02/12/17 15:42 80 124/57 02/12/17 15:40 107 H 153/69 02/12/17 15:38 98 H 170/65 02/12/17 15:35 86 131/68 02/12/17 15:33 89 132/71 02/12/17 15:31 85 128/61 02/12/17 15:30 86 02/12/17 15:29 85 133/65 02/12/17 15:27 86 129/67 02/12/17 15:25 88 136/79 02/12/17 15:23 80 119/59 02/12/17 15:22 90 124/58 02/12/17 15:20 80 02/12/17 15:19 83 124/67 02/12/17 15:17 85 123/73 02/12/17 15:15 87 121/69 02/12/17 15:13 84 124/67 02/12/17 15:10 107 H 02/12/17 15:05 93 H 02/12/17 15:00 89 02/12/17 14:55 97 H 02/12/17 14:50 84 02/12/17 14:45 103 H 02/12/17 14:40 78 02/12/17 14:35 83 02/12/17 14:30 78 02/12/17 14:25 82 02/12/17 14:20 76 02/12/17 14:15 80 02/12/17 14:10 90 02/12/17 14:05 80 02/12/17 14:00 79 02/12/17 13:57 84 02/12/17 13:55 87 02/12/17 13:52 86 02/12/17 13:50 84 02/12/17 13:45 89 02/12/17 13:40 89 02/12/17 13:35 86 02/12/17 13:30 89 02/12/17 13:25 86 02/12/17 13:20 90 02/12/17 13:15 93 H 02/12/17 13:10 97 H 02/12/17 13:05 86 02/12/17 13:00 83 02/12/17 12:55 81 02/12/17 12:50 88 02/12/17 12:48 86 02/12/17 12:45 92 H 02/12/17 12:40 100 H 02/12/17 12:35 86 02/12/17 12:33 85 115/59 02/12/17 12:30 95 H 02/12/17 12:25 87 02/12/17 12:20 89 02/12/17 12:15 86 02/12/17 12:14 99.4 F 18 111/63 02/12/17 12:12 81 111/63 02/12/17 12:10 88 02/12/17 12:05 86 02/12/17 12:00 86 02/12/17 11:55 91 H 02/12/17 11:50 97 H Pulse Ox 02/13/17 11:38 07/25/17 08:20 02/13/17 04:00 02/13/17 00:00 02/12/17 17:38 02/12/17 17:11 02/12/17 17:09 02/12/17 17:07 02/12/17 17:05 02/12/17 17:03 02/12/17 17:01 02/12/17 16:59 02/12/17 16:57 02/12/17 16:55 02/12/17 16:53 02/12/17 16:52 98 02/12/17 16:51 02/12/17 16:49 02/12/17 16:47 98 02/12/17 16:45 02/12/17 16:43 02/12/17 16:42 97 02/12/17 16:41 02/12/17 16:39 02/12/17 16:37 96 02/12/17 16:35 02/12/17 16:33 02/12/17 16:32 96 02/12/17 16:31 02/12/17 16:29 02/12/17 16:27 97 02/12/17 16:25 96 02/12/17 16:23 02/12/17 16:22 96 02/12/17 16:21 02/12/17 16:19 02/12/17 16:17 02/12/17 16:15 02/12/17 16:13 02/12/17 16:12 02/12/17 16:07 02/12/17 16:06 02/12/17 16:05 02/12/17 16:03 02/12/17 16:01 02/12/17 15:59 02/12/17 15:57 02/12/17 15:53 02/12/17 15:51 02/12/17 15:50 98 02/12/17 15:49 02/12/17 15:48 83 L 02/12/17 15:47 02/12/17 15:45 92 02/12/17 15:42 02/12/17 15:40 100 02/12/17 15:38 02/12/17 15:35 100 02/12/17 15:33 02/12/17 15:31 02/12/17 15:30 100 02/12/17 15:29 02/12/17 15:27 02/12/17 15:25 100 02/12/17 15:23 02/12/17 15:22 02/12/17 15:20 99 02/12/17 15:19 02/12/17 15:17 02/12/17 15:15 96 02/12/17 15:13 02/12/17 15:10 96 02/12/17 15:05 97 02/12/17 15:00 100 02/12/17 14:55 99 02/12/17 14:50 100 02/12/17 14:45 100 02/12/17 14:40 100 02/12/17 14:35 99 02/12/17 14:30 99 02/12/17 14:25 100 02/12/17 14:20 99 02/12/17 14:15 99 02/12/17 14:10 99 02/12/17 14:05 100 02/12/17 14:00 99 02/12/17 13:57 94 02/12/17 13:55 94 02/12/17 13:52 94 02/12/17 13:50 95 02/12/17 13:45 94 02/12/17 13:40 96 02/12/17 13:35 97 02/12/17 13:30 96 02/12/17 13:25 96 02/12/17 13:20 96 02/12/17 13:15 97 02/12/17 13:10 97 02/12/17 13:05 96 02/12/17 13:00 95 02/12/17 12:55 96 02/12/17 12:50 95 02/12/17 12:48 94 02/12/17 12:45 95 02/12/17 12:40 97 02/12/17 12:35 95 02/12/17 12:33 02/12/17 12:30 96 02/12/17 12:25 96 02/12/17 12:20 96 02/12/17 12:15 96 02/12/17 12:14 96 02/12/17 12:12 02/12/17 12:10 96 02/12/17 12:05 96 02/12/17 12:00 96 02/12/17 11:55 96 02/12/17 11:50 96 Intake and Output 02/12/17 02/13/17 02/13/17 22:59 06:59 14:59 Intake Total 120 1100 Balance 120 1100 Intake: Oral 120 500 Intake, Free Water 600 Other: Total, Intake Amount 120 250 # Voids Void 1 Estimated Blood Loss 500 - Exam Breasts: Present: deferred, normal Cardiovascular: Present: Regular rate Lungs: Present: Clear to auscultation Abdomen: Present: normal appearance, soft Uterus: Present: normal, firm, fundal height at umbilicus Extremities: Present: edema - Labs Labs: Abnormal lab results 02/13/17 Range/Units 05:39 Hgb 9.6 L (10.1-14.3) gm/dl Hct 29.8 L (30.3-42.9) % Laboratory Tests 02/11/17 02/11/17 02/13/17 03:16 03:41 05:39 WBC 11.2 H RBC 3.60 L Hgb 10.7 9.6 L Hct 32.6 29.8 L MCV 91 MCH 30 MCHC 33 RDW 14.4 Plt Count 336 Blood Type A POSITIVE Antibody Screen TNR AVINASH Antibody Screen Negative
--- NOTE | 2017-02-13 14:27 | Discharge Summary ---
Providers - Providers Date of Admission: 02/11/17 03:29 Date of discharge: 02/14/17 Attending physician: RUDY JOSEPH Primary care physician: RUDY JOSEPH Hospitalization Reason for admission: active labor, IUP at term Delivery: vacuum extraction Episiotomy: none Laceration: 2nd degree (perineal) Other procedures: none complications: none Discharge diagnosis: IUP at term delivered Syl[place] baby: female Hospital course: Unremarkable. Condition at discharge: Good Disposition: DC-01 TO HOME OR SELFCARE - Discharge Diagnoses (1) 39 weeks gestation of Status: Resolved (2) (normal spontaneous vaginal delivery) Status: Resolved (3) Acute blood loss anemia Status: Acute Plan - Discharge Medications Prescriptions: Ferrous Sulfate [Feosol 325 MG tab] 325 mg PO BID #60 tablet HYDROcodone/APAP 5-325 [[place] 5-325 mg TAB] 1 each PO Q4H PRN #20 tablet PRN Reason: Pain, Moderate (4-6) Ibuprofen [Motrin 600 MG tab] 600 mg PO Q6HR #30 tablet Vit-Fe Fumar-FA [ Vitamin] 1 each PO QDAY #30 tablet - Provider Discharge Summary Activity: routine, no sex for 6 weeks, no heavy lifting 4 weeks, no strenuous exercise Diet: routine Instructions: routine Additional instructions: [] Smoking cessation referral if applicable(refer to patient education folder for contact #) [] Refer to [facility]'s [facility] Booklet Call your doctor immediately for: * Fever > 100.5 * Heavy vaginal bleeding ( >1 pad per hour) * Severe persistent headache * Shortness of breath * Reddened, hot, painful area to leg or breast * Drainage or odor from incision. * Keep incision clean and dry at all times and follow doctor's instructions regarding bathing/showering - Follow up plan Follow up: RUDY JOSEPH MD [Primary Care Provider] - 6 Weeks
[2017-02-13] MEDS ORDERED: M-M-R II VACCINE SUB-Q ONE (16:27)
[2017-02-14] MEDS: MOTRIN PO SCH ×2 (02:13→08:28)
[2017-02-14] MEDS: NORCO 5/325 PO PRN ×2 (02:14→06:04)
[2017-02-14] MEDS: TUCKS PAD TP PRN (05:01)
[2017-02-14] MEDS: PRENATAL VITAMIN PO SCH (08:30)
[2017-02-14 12:10] VITALS: BP 144/80
== END 2017-02-14 10:45 | disposition home or self-care (01) | DRG 775 ==
LOC: TRG 02:11 → LD 03:29 → OB 02-12 17:44
PROVIDERS: ADMIT Obstetrics & Gynecology Gynecology; ATTEND Obstetrics & Gynecology Gynecology
PROC: 3E033VJ Introduction of Other Hormone into Peripheral Vein, Percutaneous Approach (ICD-10-PCS; principal; 2017-02-12)
PROC: 3E0S3CZ (ICD-10-PCS; principal; 2017-02-12)
PROC: 10D07Z6 Extraction of Products of Conception, Vacuum, Via Natural or Artificial Opening (ICD-10-PCS; principal; 2017-02-12)
PROC: 0KQM0ZZ Repair Perineum Muscle, Open Approach (ICD-10-PCS; principal; 2017-02-12)
PROC: 00HU33Z Insertion of Infusion Device into Spinal Canal, Percutaneous Approach (ICD-10-PCS; principal; 2017-02-12)
PROC: 3E0234Z Introduction of Serum, Toxoid and Vaccine into Muscle, Percutaneous Approach (ICD-10-PCS; 2017-02-13)
DX: O99.824 Streptococcus B carrier state complicating childbirth (principal); O63.9 Long labor, unspecified; O76 Abnormality in fetal heart rate and rhythm complicating labor and delivery; D62 Acute posthemorrhagic anemia; O70.1 Second degree perineal laceration during delivery; Z3A.39 39 weeks gestation of pregnancy; Z37.0 Single live birth; O99.03 Anemia complicating the puerperium; Z23 Encounter for immunization
CPT/HCPCS: 36415; 85014; 85018; 85027; 86850; 86900; 86901; J0290; J0595; J2210; J2590; J3010; J7120

== ENCOUNTER 2019-01-29 16:55 | Emergency (ER) | payer MEDICAID ==
[2019-01-29 17:01] VITALS: BP 109/71
--- NOTE | 2019-01-29 17:18 | Emergency Department Report ---
ED ENT HPI - General Chief complaint: Dental/Oral Stated complaint: TOOTHACHE Time Seen by Provider: 01/29/19 17:03 Source: patient Mode of arrival: Ambulatory Limitations: No Limitations - History of Present Illness Initial comments: 28-year-old female comes in with excruciating left side lower jaw tooth pain 2 weeks with worsening pain. Patient reports she is aware that she has a bad tooth and missed her dental appointment secondary to having her kids out of town. complaint: tooth pain Onset/Timin -: week(s) Location: tooth # (17,18) Severity: severe Severity scale (0 -10): 10 Consistency: constant Worsens with: none Context- Dental: history of dental caries, poor dental care - Related Data Home Medications Medication Instructions Recorded Confirmed Last Taken Ferrous Sulfate [Feosol 325 MG tab] 325 mg PO BID 02/12/17 02/12/17 02/10/17 23:30 Vit No.130/Iron/Folic 1 each PO DAILY 02/12/17 02/12/17 02/10/17 23:30 [ Tablet] Previous Rx's Medication Instructions Recorded Last Taken Type Ferrous Sulfate [Feosol 325 MG tab] 325 mg PO BID #60 tablet 02/13/17 Unknown Rx Ibuprofen [Motrin 600 MG tab] 600 mg PO Q6HR #30 tablet 02/13/17 Unknown Rx Vit-Fe Fumar-FA [ 1 each PO QDAY #30 tablet 02/13/17 Unknown Rx Vitamin] Amoxicillin [Trimox CAP] 500 mg PO Q8H #30 capsule 01/29/19 Unknown Rx HYDROcodone/APAP 5-325 [[place] 1 each PO Q4H PRN #12 tablet 01/29/19 Unknown Rx 5-325 mg TAB] Ibuprofen [Motrin 400 MG tab] 400 mg PO Q8H PRN #30 tablet 01/29/19 Unknown Rx Allergies Allergy/AdvReac Type Severity Reaction Status Date / Time No Known Allergies Allergy Verified 01/29/19 16:59 ED Dental HPI - General Chief complaint: Dental/Oral Stated complaint: TOOTHACHE Time Seen by Provider: 01/29/19 17:03 Source: patient Mode of arrival: Ambulatory Limitations: No Limitations - Related Data Home Medications Medication Instructions Recorded Confirmed Last Taken Ferrous Sulfate [Feosol 325 MG tab] 325 mg PO BID 02/12/17 02/12/17 02/10/17 23:30 Vit No.130/Iron/Folic 1 each PO DAILY 02/12/17 02/12/17 02/10/17 23:30 [ Tablet] Previous Rx's Medication Instructions Recorded Last Taken Type Ferrous Sulfate [Feosol 325 MG tab] 325 mg PO BID #60 tablet 02/13/17 Unknown Rx Ibuprofen [Motrin 600 MG tab] 600 mg PO Q6HR #30 tablet 02/13/17 Unknown Rx Vit-Fe Fumar-FA [ 1 each PO QDAY #30 tablet 02/13/17 Unknown Rx Vitamin] Amoxicillin [Trimox CAP] 500 mg PO Q8H #30 capsule 01/29/19 Unknown Rx HYDROcodone/APAP 5-325 [[place] 1 each PO Q4H PRN #12 tablet 01/29/19 Unknown Rx 5-325 mg TAB] Ibuprofen [Motrin 400 MG tab] 400 mg PO Q8H PRN #30 tablet 01/29/19 Unknown Rx Allergies Allergy/AdvReac Type Severity Reaction Status Date / Time No Known Allergies Allergy Verified 01/29/19 16:59 ED Review of Systems ROS: Stated complaint: TOOTHACHE Other details as noted in HPI Comment: All other systems reviewed and negative ENT: dental pain ED Past Medical Hx - Past Medical History Previous Medical History?: No Hx Hypertension: No Hx Congestive Heart Failure: No Hx Diabetes: No Hx Deep Vein Thrombosis: No Hx Renal Disease: No Hx Sickle Cell Disease: No Hx Seizures: No Hx Asthma: No Hx COPD: No Hx HIV: No - Surgical History Past Surgical History?: No - Social History Smoking Status: Current Every Day Smoker Substance Use Type: Alcohol - Medications Home Medications: Home Medications Medication Instructions Recorded Confirmed Last Taken Type Ferrous Sulfate [Feosol 325 MG tab] 325 mg PO BID 02/12/17 02/12/17 02/10/17 23:30 History Vit No.130/Iron/Folic 1 each PO DAILY 02/12/17 02/12/17 02/10/17 23:30 History [ Tablet] Ferrous Sulfate [Feosol 325 MG tab] 325 mg PO BID #60 tablet 02/13/17 Unknown Rx Ibuprofen [Motrin 600 MG tab] 600 mg PO Q6HR #30 tablet 02/13/17 Unknown Rx Vit-Fe Fumar-FA [ 1 each PO QDAY #30 tablet 02/13/17 Unknown Rx Vitamin] Amoxicillin [Trimox CAP] 500 mg PO Q8H #30 capsule 01/29/19 Unknown Rx HYDROcodone/APAP 5-325 [[place] 1 each PO Q4H PRN #12 tablet 01/29/19 Unknown Rx 5-325 mg TAB] Ibuprofen [Motrin 400 MG tab] 400 mg PO Q8H PRN #30 tablet 01/29/19 Unknown Rx ED Physical Exam - General Limitations: No Limitations General appearance: alert, in no apparent distress, other (tearful) - Head Head exam: Present: atraumatic, normocephalic - Eye Eye exam: Present: normal appearance - ENT ENT exam: Present: mucous membranes moist - Expanded ENT Exam Expanded Teeth exam: Present: dental caries, fractured tooth # (17,18), dental tenderness #, gingival enlargement - Neck Neck exam: Present: normal inspection - Neurological Exam Neurological exam: Present: alert, oriented X3 - Psychiatric Psychiatric exam: Present: normal affect, normal mood - Skin Skin exam: Present: warm, dry, intact, normal color. Absent: rash ED Course Vital Signs 01/29/19 16:59 Temperature 98.1 F Pulse Rate 69 Respiratory 16 Rate Blood Pressure 109/71 O2 Sat by Pulse 99 Oximetry Critical care attestation.: If time is entered above; I have spent that time in minutes in the direct care of this critically ill patient, excluding procedure time. ED Disposition Clinical Impression: Pain due to dental caries Disposition: DC- TO HOME OR SELFCARE Is pt being admited?: No Does the pt Need Aspirin: No Condition: Stable Instructions: Toothache (ED), Dental Caries (ED) Additional Instructions: Complete antibiotics as prescribed. Pain medication as needed. Do not operate heavy machinery while taking [place]. Follow-up with a dentist I have referred to several community dentist below. Prescriptions: Ibuprofen [Motrin 400 MG tab] 400 mg PO Q8H PRN #30 tablet PRN Reason: Pain, Moderate (4-6) HYDROcodone/APAP 5-325 [[place] 5-325 mg TAB] 1 each PO Q4H PRN #12 tablet PRN Reason: Pain , Severe (7-10) Amoxicillin [Trimox CAP] 500 mg PO Q8H #30 capsule Referrals: TANJA ENNIS MD [Primary Care Provider] - 3-5 Days [facility] [Outside] - 3-5 Days [facility] [Outside] - 3-5 Days [facility] [Provider Group] - 3-5 Days Forms: Work/School Release Form(ED)
[2019-01-29] MEDS ORDERED: IBUPROFEN PO ONE ×2 (17:53→17:54)
[2019-01-29] MEDS ORDERED: ULTRAM PO ONE (17:56)
== END 2019-01-29 18:26 | disposition home or self-care (01) ==
LOC: ED 16:55
DX: K02.9 Dental caries, unspecified (principal); F17.200 Nicotine dependence, unspecified, uncomplicated